=== PATIENT | female | born 1970 | race Caucasian/White ===

== ENCOUNTER → 2021-02-15 | Outpatient (CLI) | payer BC ==
--- NOTE | 2021-02-16 10:41 | MM ---
Reason for exam: screening (asymptomatic). Baseline mammogram. History: Took hormonal contraceptives beginning at age 16. Physical Findings: Nurse did not find any significant physical abnormalities on exam. MG Screening Mammo w CAD Bilateral CC and MLO view(s) were taken. XCCL view(s) were taken of the right breast. The breast tissue is heterogeneously dense. This may lower the sensitivity of mammography. Focal asymmetry right posterior inferior aspect MLO view only. Benign bilateral axillary lymph nodes. ASSESSMENT: Incomplete: need additional imaging evaluation, BI-RAD 0 RECOMMENDATION: Special view mammogram of the right breast. If lesion persists on supplemental views, image directed ultrasound is recommended. [facility] will attempt to contact patient to return for supplemental views and ultrasound if indicated.
== END | disposition home or self-care (01) ==
LOC: RADMAMWWP 08:21
PROVIDERS: ATTEND Family Medicine
DX: Z12.31 Encounter for screening mammogram for malignant neoplasm of breast (principal)
CPT/HCPCS: 77067

== ENCOUNTER → 2021-02-17 | Outpatient (CLI) | payer BC ==
--- NOTE | 2021-02-23 10:34 | MM ---
Reason for exam: additional evaluation requested from abnormal screening. Last mammogram was performed less than 1 month ago. History: Took hormonal contraceptives beginning at age 16. Physical Findings: Breast exam preformed at baseline screening. MG Work Up Mamm w CAD RT Spot compression MLO, LM, XCCM, and CV view(s) were taken of the right breast. Prior study comparison: February 15, 2021, bilateral MG screening mammo w CAD. The breast tissue is heterogeneously dense. This may lower the sensitivity of mammography. Focal asymmetry inferior medial left breast, best seen on cleavage view. No significant new findings when compared with previous films. These results were verbally communicated with the patient and result sheet given to the patient on 02/17/21. ASSESSMENT: Probably benign, BI-RAD 3 RECOMMENDATION: Follow-up diagnostic mammogram of the right breast in 6 months. (2 view and cleavage view)
== END | disposition home or self-care (01) ==
LOC: RADMAMWWP 08:24
PROVIDERS: ATTEND Family Medicine
DX: R92.8 Other abnormal and inconclusive findings on diagnostic imaging of breast (principal)
CPT/HCPCS: 77065